=== PATIENT | female | born 1970 | race Caucasian/White ===

== ENCOUNTER 2023-03-17 10:00 | Outpatient (OUT) | payer MEDICARE, MEDICAID, SELFPAY ==
[2023-03-17 09:45] VITALS: BP 115/71; PULSE 79; RESP 18; TEMP 36.5; O2SAT 95
--- NOTE | 2023-03-17 10:07 | PC.NURSE ---
Addendum entered by Elena Hernández 03/17/23 10:27: Barcode not scanning, tried manually entering multiple times. Patient tolerated infusion well. Original Note: Patient is here for injectafer infusion, she is tolerating this well. She denies any concerns or complaint at this time.
== END 2023-03-17 12:00 | disposition home or self-care (01) ==
LOC: INF 06-15 09:08
PROVIDERS: PCP Nurse Practitioner; Visit Provider Internal Medicine Hematology & Oncology
DX: D75.839 Thrombocytosis, unspecified (principal); D72.820 Lymphocytosis (symptomatic); D50.9 Iron deficiency anemia, unspecified; K90.9 Intestinal malabsorption, unspecified
CPT/HCPCS: 96365; J1439

== ENCOUNTER 2023-03-28 10:21 | Emergency (ER) | payer MEDICARE, MEDICAID, SELFPAY ==
[2023-03-28 10:30] VITALS: BP 161/76; PULSE 76; RESP 18; TEMP 36.5; O2SAT 97
--- NOTE | 2023-03-28 10:45 | ED.GENADUL1 ---
HPI - General Adult General Chief complaint: Extremity Injury, Upper Stated complaint: IRON INFUSION, VEINS EXPLODING Time Seen by Provider: 03/28/23 10:45 Source: patient Mode of arrival: walk-in Limitations: no limitations History of Present Illness HPI narrative: Patient presents to emergency department complaining of right arm discoloration. She states she had an iron infusion which infiltrated. This was done at the outpatient center. She has applied warm and ice compresses to the area. She has noted that there has been some areas of discoloration. She states that discoloration surface and it causes a small abrasion she is describing it as thinking that this was her blood vessels popping out. She denies any paresthesias. She denies any weakness. She states she has elevated the arm. She denies any chest pain, shortness of breath. She denies any fever, chills, or cough. Related Data Previous Rx's Medication Instructions Recorded mupirocin 2 % topical ointment 1 applic topical BID #15 grams 03/28/23 Allergies Allergy/AdvReac Type Severity Reaction Status Date / Time No Known Drug Allergies Allergy Verified 03/28/23 10:35 Review of Systems ROS Status of ROS 10 or more systems reviewed and unremarkable except as noted in history and below Exam Narrative Exam Narrative: Nurses notes and vital signs reviewed and patient is not hypoxic. General: Nontoxic, Well-appearing and in no apparent distress. Skin: Warm, dry, no pallor noted. No Rash Head: Normocephalic, atraumatic. Neck: Supple, non-tender. Eye: Pupils are equal, round and EOMI. No scleral icterus. Ears, Nose, Mouth, and Throat: TM clear, no posterior oropharynx erythema or nasal mucosal hypertrophy, uvula is mid-line Oral mucosa is moist Cardiovascular: Regular Rate and Rhythm without murmur, gallop or rub. Respiratory: No accessory muscle use or respiratory distress. Lungs are clear to auscultation, no wheezing, rales or rhonchi Chest Wall: no tenderness Back: No midline thoracic or lumbar vertebral tenderness. No CVA tenderness Musculoskeletal: Left forearm with had she fairs colored discoloration. There are some areas of increased abrasions which are linear. There are no palpable cords, no signs of deep vein thrombosis, no edema. Radial pulses +2, capillary refill is brisk. normal ROM, no calf or popliteal tenderness, no lower extremity edema/swelling GI: Abdomen is soft, non-distended. Normal bowel sounds. No masses appreciated. No tenderness to palpation. No rebound, guarding, or rigidity noted. Neurological: A&O x4. No cranial nerve dysfunction observed. No truncal ataxia. Moves all extremities. Sensation intact. Psychiatric: Cooperative and interactive. Normal mood and affect. Constitutional Vital Signs - 24 hr 03/28/23 10:30 03/28/23 12:44 03/28/23 12:45 Temperature 97.7 F Pulse Rate 68 Pulse Rate [Monitor] 76 Respiratory Rate 18 14 Blood Pressure 110/68 Blood Pressure [Right Arm] 161/76 H Pulse Oximetry 97 100 Oxygen Delivery Method Room Air Room Air Course Vital Signs Vital signs: Vital Signs Temperature 97.7 F 03/28/23 10:30 Pulse Rate 76 03/28/23 10:30 Respiratory Rate 18 03/28/23 10:30 Blood Pressure 161/76 H 03/28/23 10:30 Pulse Oximetry 97 03/28/23 10:30 Oxygen Delivery Method Room Air 03/28/23 10:30 Temperature 97.7 F 03/28/23 10:30 Pulse Rate 68 03/28/23 12:44 Respiratory Rate 14 03/28/23 12:44 Blood Pressure 110/68 03/28/23 12:44 Pulse Oximetry 100 03/28/23 12:44 Oxygen Delivery Method Room Air 03/28/23 12:45 Medical Decision Making MDM Narrative Medical decision making narrative: Ultrasound and Doppler was done which was negative. There is no fluid collection or abscess. No signs of infection. Discussed with the patient to apply antibiotic ointment to the abrasion. Continue to monitor. Watch for signs of infection. Return to the emergency department with any possible concerns as discussed. At this time the patient is without objective evidence of an acute process requiring hospitalization or inpatient management. The patient has remained hemodynamically stable. No additional indication for emergent studies at this time. I answered all questions. Discussed discharge instructions including standard anticipatory guidance and what should prompt a return to the emergency department, including if they get worse are not getting better or develops any new or concerning symptoms. I've given them specific time frame in which to follow-up, and who to follow-up with. The patient demonstrates understanding. Patient is nontoxic and stable for discharge with outpatient follow-up. This note was created with the assistance of a speech recognition program. Although the intention is to generate documents that actually reflects the content of the visit, no guarantees can be provided that every mistake has been identified and corrected by editing. Discharge Plan Discharge Chief Complaint: Extremity Injury, Upper Clinical Impression: Left arm pain, Abrasion Patient Disposition: Home, Self-Care Time of Disposition Decision: 13:29 Condition: Good Mode of Transportation: Private Vehicle Prescriptions / Home Meds: New mupirocin 2 % ointment 1 applic topical BID Qty: 15 0RF Instructions: Arm Pain (ED) Stand Alone Forms: Portal Instructions Referrals: Mendy Cardenas [Primary Care Provider] - 1 week Discharge Date/Time: 03/28/23 13:50
--- NOTE | 2023-03-28 11:24 | US_ITS ---
[place] [id number] Patient Name: GERMÁN FLYNN MRN: [id number] date: 1970 Sex: F Assigned Patient Location: ER Current Patient Location: ER Accession/Order Number: [id number] Exam Date: 03/28/2023 11:30 Report Date: 03/28/2023 13:04 At the request of: LETITIA RIVERA Procedure: US venous doppler UE LT EXAMINATION: US venous doppler UE LT HISTORY: pain ; post infusion 11 days ago COMPARISON: No relevant comparison available. FINDINGS: REGION: Left upper extremity THROMBI: None. COMPRESSIBILITY: Normal compressibility. FLOW: Normal waveform and antegrade flow between 5 and 20 cm/s. OTHER: None. IMPRESSION: 1. No deep vein thrombus within the left upper extremity. Electronically authenticated by: NOLAN CARD Date: 03/28/2023 13:04
[2023-03-28 12:44] VITALS: BP 110/68; PULSE 68; RESP 14; O2SAT 100
--- NOTE | 2023-03-28 13:49 | PC.NURSE ---
d/c instructions complete, pt verbalized understanding. prescription sent to pharmacy and pt told to return to ER for any problems or concerns. gait steady to exit
== END 2023-03-28 13:50 | disposition home or self-care (01) ==
PROVIDERS: Emergency Provider Emergency Medicine; PCP Nurse Practitioner
DX: S40.812A Abrasion of left upper arm, initial encounter (principal); M79.602 Pain in left arm; X58.XXXA Exposure to other specified factors, initial encounter
CPT/HCPCS: 93971; 99284